=== PATIENT | female | born 1990 | race Caucasian/White ===

== ENCOUNTER 2016-03-16 16:25 | Emergency (ER) | payer OTHER ==
[2016-03-16] MEDS ORDERED: CEPHALEXIN 250 MG CAP As Ordered ONE (18:09)
[2016-03-16] MEDS ORDERED: LIDOCAINE 1% MDV 20ML VIAL As Ordered ONE (18:09)
[2016-03-16] MEDS ORDERED: ADACEL/BOOSTRIX VACCINE (DIPHTH/PERTUSS/ACELL/TETANUS)0.5ML SYR (90715) As Ordered ONE (18:10)
--- NOTE | 2016-03-16 18:33 | EDDOCDS ---
Physician Documentation [facility] Name: Maricruz Coleman Age: 25 yrs Sex: Female : 1990 Arrival Date: 03/16/2016 Time: 16:25 Bed TR8 Private MD: Disposition: 03/16/16 18:24 Discharged to Home/Self Care. Impression: Open wound of hand - LEFT, LACERATION. - Condition is Stable. - Discharge Instructions: Laceration Care, Adult. - Prescriptions for Keflex 500 mg Oral Capsule - take 1 capsule by ORAL route every 6 hours for 10 days; 40 capsule. - Medication Reconciliation, Local Pharmacy Hours form. - Follow up: Emergency Department; When: 1 week; Reason: Recheck today's complaints, Continuance of care. - Problem is new. - Symptoms have improved. Historical: - Allergies: no known allergies; - Home Meds: 1. Novolog Pump Sub-Q soln daily - PMHx: Diabetes - IDDM: controlled; Polycystic Ovary Disease; - PSHx: D & C; - Immunization history:: Last tetanus immunization: unknown. - Family history: Not pertinent. - Social history: Smoking status: Patient states was never smoker of tobacco. No barriers to communication noted, The patient speaks fluent Estonian, Speaks appropriately for age. - : The pt / caregiver states he / she is not on anticoagulants. Home medication list is obtained from the patient. - Exposure Risk Screening:: None identified. 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 7 in. (170.18 cm) (R); Pain 1/10; 18:30 BP 144 / 86; Pulse 114; Resp 16; Temp 99.4(TE); Pulse Ox 97% on R/A; Pain 0/10; mlb1 16:27 Body Mass Index 36.81 (106.59 kg, 170.18 cm) sar1 Procedures: 18:22 Laceration repair:. ck7 Laceration: 18:22 Wound Repair of 1cm ( 0.4in ) full thickness laceration to left hand. Linear shaped.. ck7 Distal neuro/vascular/tendon intact. Anesthesia: Topical anesthetic administered with 2 mls of 1% lidocaine. Wound prep: Extensive cleansing with betadine by provider, Wound irrigation by provider, Wound explored extensively. Skin closed with 2 x 4-0 Nylon using Simple interrupted sutures. Dressed with bandaid. Patient tolerated well. MDM: 17:59 Cephalexin 500 mg PO once ordered. ck7 17:59 Tetanus- Diptheria-Acellular Pertussis 0.5 ml IM once; Routine booster 10-64yrs, >64 ck7 with child contact [place] [employer] ordered. 17:59 Lidocaine 10 mg/mL (1 %) 10 ml Infiltration once; to bedside ordered. ck7 18:12 Financial registration complete. ks16 18:13 [facility] Payment Agreement was scanned into [employer] and attached to record. ks16 Administered Medications: 18:24 Drug: Tetanus- Diptheria-Acellular Pertussis 0.5 ml [diphth,pertussis(acel),tetanus 2.5 ms18 Lf unit-8 mcg-5 Lf/0.5mL IM syringe (0.5 mL)] {Metal Trades Instructor: [employer]. Exp: 05/01/2018. Lot #: [id number]. } Route: IM; Site: right deltoid; 18:24 Drug: Lidocaine 10 ml [lidocaine 10 mg/mL (1 %) injection solution (10 mL)] {Note: ms18 administered by Alley MEI.} Route: Infiltration; 18:25 Drug: Cephalexin 500 mg [cephalexin 250 mg capsule (2 caps)] {Note: pt unable to ms18 swallow pill, mixed in cranberry thickener.} Route: PO; Signatures: Curtis Luke, RN RN mlb1 Dario Aviles, RPA-C RPA-Cck7 Mckenzie Beal, Reg Reg lilli16 Kyung Brown RN ms18 The chart was reviewed and I authenticate all verbal orders and agree with the evaluation and treatment provided.Attachments: 18:13 [facility] Payment Agreement ks16 MTDD
--- NOTE | 2016-03-16 18:33 | EDDOCDS ---
Nurse's Notes 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 Adult Sepsis Screening: The patient does not have new or worsening altered mentation. Patient's respiratory rate is less than 22. Systolic blood pressure is greater than 100. Patient has a qSOFA score of 0- Negative Sepsis Screen. Suicide/Homicide risk assessment- Suicide/Homicide risk assessment- the patient denies having any suicidal and/or homicidal ideations and does not present with any other emotional, behavioral or mental health complaints. Status: Patient is not a general service officer or dependent. Transition of care: patient was not received from another setting of care. 16:31 Acuity: GIO Level 4 mlb1 16:31 Method Of Arrival: Walkin/Carried/Asstd mlb1 Triage Assessment: 16:34 General: Appears in no apparent distress, Behavior is appropriate for age, cooperative. mlb1 Pain: Location: Left first web space Pain currently is 1 out of 10 on a pain scale. Pt Declines HIV testing. Injury Description: Laceration sustained to Left first web space is 0.5 to 2.5 cm long, not bleeding, is bleeding a small amount. 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 Novolog Pump Sub-Q soln daily - PMHx: Diabetes - IDDM: controlled; Polycystic Ovary Disease; - PSHx: D & C; - Immunization history:: Last tetanus immunization: unknown. - Family history: Not pertinent. - Social history: Smoking status: Patient states was never smoker of tobacco. No barriers to communication noted, The patient speaks fluent Divehi, Speaks appropriately for age. - : The pt / caregiver states he / she is not on anticoagulants. Home medication list is obtained from the patient. - Exposure Risk Screening:: None identified. Screenin:31 Screening information is obtained from the patient. Fall risk: No risks identified. mlb1 Assistance ADL's: requires no assistance with activities of daily living. Abuse/DV Screen: The patient / caregiver reports he/she is: not in a situation that causes fear, pain or injury. Nutritional screening: No deficits noted. Advance Directives: Currently, there is no health care proxy. home support is adequate. Assessment: 18:29 General: Appears in no apparent distress, comfortable, Behavior is appropriate for age, mlb1 cooperative. Pain: Denies pain. Injury Description: Laceration sustained to Left first web space is clean, 0.5 to 2.5 cm long, not bleeding, is bleeding a small amount. Vital Signs: 16:27 BP 179 / 75; Pulse 110; Resp 18; Temp 98.5(O); Pulse Ox 96% on R/A; Weight 106.59 kg sar1 (R); Height 5 ft. 7 in. (170.18 cm) (R); Pain 1/10; 18:30 BP 144 / 86; Pulse 114; Resp 16; Temp 99.4(TE); Pulse Ox 97% on R/A; Pain 0/10; mlb1 16:27 Body Mass Index 36.81 (106.59 kg, 170.18 cm) [facility] Vitals: 16:27 Log In Time: March 16, 2016 at 16:27. [facility] ED Course: 16:26 Patient visited by Greer Rao, Process Camera Operator. sar1 16:26 Patient moved to Waiting sar1 16:28 Patient moved to Pre RCE sar1 16:31 Patient visited by Curtis Luke RN. mlb1 16:32 Triage Initiated mlb1 16:35 Patient visited by Curtis Luke RN. mlb1 17:01 Patient moved to Triage 1 ms18 17:53 [facility]C [facility] ck7 17:53 Carla Moon MD is Attending Physician. ck7 17:53 Patient visited by Dario Aviles RPA-C. ck7 18:08 Patient moved to PD2 / 27 mlb1 18:13 [facility] Payment Agreement was scanned into [employer] and attached to record. ks16 18:18 Patient name changed from Maricruz\S\\S\[place]\S\ to Maricruz\S\ \S\[place]. EDMS 18:24 Patient visited by Kyung Brown RN. ms18 18:31 No IV's were initiated during this patient's visit. No procedures done that require mlb1 assistance. 18:32 Patient moved to TR8 ms18 18:32 The patient / caregiver is instructed regarding the plan of care and ED course. mlb1 Administered Medications: 18:24 Drug: Tetanus- Diptheria-Acellular Pertussis 0.5 ml [diphth,pertussis(acel),tetanus 2.5 ms18 Lf unit-8 mcg-5 Lf/0.5mL IM syringe (0.5 mL)] {Trust Vault Custodian: [employer]. Exp: 05/01/2018. Lot #: [id number]. } Route: IM; Site: right deltoid; 18:24 Drug: Lidocaine 10 ml [lidocaine 10 mg/mL (1 %) injection solution (10 mL)] {Note: ms18 administered by Alley MEI.} Route: Infiltration; 18:25 Drug: Cephalexin 500 mg [cephalexin 250 mg capsule (2 caps)] {Note: pt unable to ms18 swallow pill, mixed in cranberry thickener.} Route: PO; Order Results: There are currently no results for this order. Outcome: 18:24 Discharge ordered by Provider. ck7 18:31 Discharge Assessment: Patient awake, alert and oriented x 3. No cognitive and/or mlb1 functional deficits noted. Patient verbalized understanding of disposition instructions. patient administered narcotics - no. The following High Risk Discharge criteria are identified: None. Discharged to home ambulatory. Condition: good. Discharge instructions given to patient, Instructed on discharge instructions, follow up and referral plans. Demonstrated understanding of instructions, medications, Pt was receptive of discharge instructions/ teaching. Prescriptions given X 1. No special radiology studies were completed. Property sent home with patient. 18:32 Patient left the ED. mlb1 Signatures: Dispatcher [employer] [facility] Curtis Luke RN RN Dario Harvey, RPA-C RPA-Cck7 Kyung Brown,KARLA RN ms18 Greer Rao, Process Camera Operator Unit sar1 Emigdio Mckenzie, Reg Reg ks16 MTDD
--- NOTE | 2016-03-18 19:33 | EDDOCDS ---
Physician Documentation [facility] Name: Maricruz Coleman Age: 25 yrs Sex: Female : 1990 Arrival Date: 03/16/2016 Time: 16:25 Bed TR8 Private MD: Disposition: 03/16/16 18:24 Discharged to Home/Self Care. Impression: Open wound of hand - LEFT, LACERATION. - Condition is Stable. - Discharge Instructions: Laceration Care, Adult. - Prescriptions for Keflex 500 mg Oral Capsule - take 1 capsule by ORAL route every 6 hours for 10 days; 40 capsule. - Medication Reconciliation, Local Pharmacy Hours form. - Follow up: Emergency Department; When: 1 week; Reason: Recheck today's complaints, Continuance of care. - Problem is new. - Symptoms have improved. Historical: - Allergies: no known allergies; - Home Meds: 1. Novolog Pump Sub-Q soln daily - PMHx: Diabetes - IDDM: controlled; Polycystic Ovary Disease; - PSHx: D & C; - Immunization history:: Last tetanus immunization: unknown. - Family history: Not pertinent. - Social history: Smoking status: Patient states was never smoker of tobacco. No barriers to communication noted, The patient speaks fluent Slovenian, Speaks appropriately for age. - : The pt / caregiver states he / she is not on anticoagulants. Home medication list is obtained from the patient. - Exposure Risk Screening:: None identified. 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 7 in. (170.18 cm) (R); Pain 1/10; 18:30 BP 144 / 86; Pulse 114; Resp 16; Temp 99.4(TE); Pulse Ox 97% on R/A; Pain 0/10; mlb1 16:27 Body Mass Index 36.81 (106.59 kg, 170.18 cm) sar1 Procedures: 18:22 Laceration repair:. ck7 Laceration: 18:22 Wound Repair of 1cm ( 0.4in ) full thickness laceration to left hand. Linear shaped.. ck7 Distal neuro/vascular/tendon intact. Anesthesia: Topical anesthetic administered with 2 mls of 1% lidocaine. Wound prep: Extensive cleansing with betadine by provider, Wound irrigation by provider, Wound explored extensively. Skin closed with 2 x 4-0 Nylon using Simple interrupted sutures. Dressed with bandaid. Patient tolerated well. MDM: 17:59 Cephalexin 500 mg PO once ordered. ck7 17:59 Tetanus- Diptheria-Acellular Pertussis 0.5 ml IM once; Routine booster 10-64yrs, >64 ck7 with child contact [place] [employer] ordered. 17:59 Lidocaine 10 mg/mL (1 %) 10 ml Infiltration once; to bedside ordered. ck7 18:12 Financial registration complete. [facility] 18:13 [facility] Payment Agreement was scanned into [employer] and attached to record. [facility] 03/17 05:38 T-Sheet-- Draft Copy was scanned into [employer] and attached to record. hs2 Administered Medications: 03/16 18:24 Drug: Tetanus- Diptheria-Acellular Pertussis 0.5 ml [diphth,pertussis(acel),tetanus 2.5 ms18 Lf unit-8 mcg-5 Lf/0.5mL IM syringe (0.5 mL)] {Floor Sweeper: [employer]. Exp: 05/01/2018. Lot #: [id number]. } Route: IM; Site: right deltoid; 18:24 Drug: Lidocaine 10 ml [lidocaine 10 mg/mL (1 %) injection solution (10 mL)] {Note: ms18 administered by Alley STALLINGS} Route: Infiltration; 18:25 Drug: Cephalexin 500 mg [cephalexin 250 mg capsule (2 caps)] {Note: pt unable to ms18 swallow pill, mixed in cranberry thickener.} Route: PO; Signatures: Curtis Luke RN RN mlb1 Dario Aviles RPA-C RPA-Cck7 Mckenzie Beal, Reg Reg ks16 Natalya Bess, Reg Reg hs2 Kyung Brown RN ms18 The chart was reviewed and I authenticate all verbal orders and agree with the evaluation and treatment provided.Attachments: 18:13 [facility] Payment Agreement [facility] 01/02 05:38 T-Sheet-- Draft Copy hs2 Chart Complete MTDD
--- NOTE | 2016-03-18 19:33 | EDDOCDS ---
[facility]: Maricruz Coleman Age: 25 yrs Sex: Female : 1990 Arrival Date: 03/16/2016 Time: 16:25 Bed TR8 Private MD: Disposition: 03/16/16 18:24 Discharged to Home/Self Care. Impression: Open wound of hand - LEFT, LACERATION. - Condition is Stable. - Discharge Instructions: Laceration Care, Adult. - Prescriptions for Keflex 500 mg Oral Capsule - take 1 capsule by ORAL route every 6 hours for 10 days; 40 capsule. - Medication Reconciliation, Local Pharmacy Hours form. - Follow up: Emergency Department; When: 1 week; Reason: Recheck today's complaints, Continuance of care. - Problem is new. - Symptoms have improved. Historical: - Allergies: no known allergies; - Home Meds: 1. Novolog Pump Sub-Q soln daily - PMHx: Diabetes - IDDM: controlled; Polycystic Ovary Disease; - PSHx: D & C; - Immunization history:: Last tetanus immunization: unknown. - Family history: Not pertinent. - Social history: Smoking status: Patient states was never smoker of tobacco. No barriers to communication noted, The patient speaks fluent Latvian, Speaks appropriately for age. - : The pt / caregiver states he / she is not on anticoagulants. Home medication list is obtained from the patient. - Exposure Risk Screening:: None identified. 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 7 in. (170.18 cm) (R); Pain 1/10; 18:30 BP 144 / 86; Pulse 114; Resp 16; Temp 99.4(TE); Pulse Ox 97% on R/A; Pain 0/10; mlb1 16:27 Body Mass Index 36.81 (106.59 kg, 170.18 cm) sar1 Procedures: 18:22 Laceration repair:. ck7 Laceration: 18:22 Wound Repair of 1cm ( 0.4in ) full thickness laceration to left hand. Linear shaped.. ck7 Distal neuro/vascular/tendon intact. Anesthesia: Topical anesthetic administered with 2 mls of 1% lidocaine. Wound prep: Extensive cleansing with betadine by provider, Wound irrigation by provider, Wound explored extensively. Skin closed with 2 x 4-0 Nylon using Simple interrupted sutures. Dressed with bandaid. Patient tolerated well. MDM: 17:59 Cephalexin 500 mg PO once ordered. ck7 17:59 Tetanus- Diptheria-Acellular Pertussis 0.5 ml IM once; Routine booster 10-64yrs, >64 ck7 with child contact [place] [employer] ordered. 17:59 Lidocaine 10 mg/mL (1 %) 10 ml Infiltration once; to bedside ordered. ck7 18:12 Financial registration complete. [facility] 18:13 [facility] Payment Agreement was scanned into [employer] and attached to record. [facility] 03/17 05:38 T-Sheet-- Draft Copy was scanned into [employer] and attached to record. hs2 Administered Medications: 03/16 18:24 Drug: Tetanus- Diptheria-Acellular Pertussis 0.5 ml [diphth,pertussis(acel),tetanus 2.5 ms18 Lf unit-8 mcg-5 Lf/0.5mL IM syringe (0.5 mL)] {Fine Arts Model: [employer]. Exp: 05/01/2018. Lot #: [id number]. } Route: IM; Site: right deltoid; 18:24 Drug: Lidocaine 10 ml [lidocaine 10 mg/mL (1 %) injection solution (10 mL)] {Note: ms18 administered by Alley STALLINGS} Route: Infiltration; 18:25 Drug: Cephalexin 500 mg [cephalexin 250 mg capsule (2 caps)] {Note: pt unable to ms18 swallow pill, mixed in cranberry thickener.} Route: PO; Signatures: Curtis Luke RN RN mlb1 Dario Aviles RPA-C RPA-Cck7 Mckenzie Beal, Reg Reg ks16 Natalya Bess, Reg Reg hs2 Kyung Brown RN ms18 The chart was reviewed and I authenticate all verbal orders and agree with the evaluation and treatment provided.Attachments: 18:13 [facility] Payment Agreement [facility] 01/02 05:38 T-Sheet-- Draft Copy hs2 Chart Complete MTDD
--- NOTE | 2016-03-18 19:33 | EDDOCDS ---
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 Adult Sepsis Screening: The patient does not have new or worsening altered mentation. Patient's respiratory rate is less than 22. Systolic blood pressure is greater than 100. Patient has a qSOFA score of 0- Negative Sepsis Screen. Suicide/Homicide risk assessment- Suicide/Homicide risk assessment- the patient denies having any suicidal and/or homicidal ideations and does not present with any other emotional, behavioral or mental health complaints. Status: Patient is not a multimedia services coordinator or dependent. Transition of care: patient was not received from another setting of care. 16:31 Acuity: GIO Level 4 mlb1 16:31 Method Of Arrival: Walkin/Carried/Asstd mlb1 Triage Assessment: 16:34 General: Appears in no apparent distress, Behavior is appropriate for age, cooperative. mlb1 Pain: Location: Left first web space Pain currently is 1 out of 10 on a pain scale. Pt Declines HIV testing. Injury Description: Laceration sustained to Left first web space is 0.5 to 2.5 cm long, not bleeding, is bleeding a small amount. 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 Novolog Pump Sub-Q soln daily - PMHx: Diabetes - IDDM: controlled; Polycystic Ovary Disease; - PSHx: D & C; - Immunization history:: Last tetanus immunization: unknown. - Family history: Not pertinent. - Social history: Smoking status: Patient states was never smoker of tobacco. No barriers to communication noted, The patient speaks fluent Greek, Speaks appropriately for age. - : The pt / caregiver states he / she is not on anticoagulants. Home medication list is obtained from the patient. - Exposure Risk Screening:: None identified. Screenin:31 Screening information is obtained from the patient. Fall risk: No risks identified. mlb1 Assistance ADL's: requires no assistance with activities of daily living. Abuse/DV Screen: The patient / caregiver reports he/she is: not in a situation that causes fear, pain or injury. Nutritional screening: No deficits noted. Advance Directives: Currently, there is no health care proxy. home support is adequate. Assessment: 18:29 General: Appears in no apparent distress, comfortable, Behavior is appropriate for age, mlb1 cooperative. Pain: Denies pain. Injury Description: Laceration sustained to Left first web space is clean, 0.5 to 2.5 cm long, not bleeding, is bleeding a small amount. Vital Signs: 16:27 BP 179 / 75; Pulse 110; Resp 18; Temp 98.5(O); Pulse Ox 96% on R/A; Weight 106.59 kg sar1 (R); Height 5 ft. 7 in. (170.18 cm) (R); Pain 1/10; 18:30 BP 144 / 86; Pulse 114; Resp 16; Temp 99.4(TE); Pulse Ox 97% on R/A; Pain 0/10; mlb1 16:27 Body Mass Index 36.81 (106.59 kg, 170.18 cm) [facility] Vitals: 16:27 Log In Time: March 16, 2016 at 16:27. [facility] ED Course: 16:26 Patient visited by Greer Rao, Inspector Watch Assembly. sar1 16:26 Patient moved to Waiting sar1 16:28 Patient moved to Pre RCE sar1 16:31 Patient visited by Curtis Luke RN. mlb1 16:32 Triage Initiated mlb1 16:35 Patient visited by Curtis Luke RN. mlb1 17:01 Patient moved to Triage 1 ms18 17:53 Dario Aviles RPA-C is [facility]. ck7 17:53 Carla Moon MD is Attending Physician. ck7 17:53 Patient visited by Dario Aviles RPA-C. ck7 18:08 Patient moved to PD2 / 27 mlb1 18:13 [facility] Payment Agreement was scanned into [employer] and attached to record. ks16 18:18 Patient name changed from Maricruz\S\\S\[place]\S\ to Maricruz\S\ \S\[place]. EDMS 18:24 Patient visited by Kyung Brown RN. ms18 18:31 No IV's were initiated during this patient's visit. No procedures done that require mlb1 assistance. 18:32 Patient moved to TR8 ms18 18:32 The patient / caregiver is instructed regarding the plan of care and ED course. [facility] 03/17 05:38 T-Sheet-- Draft Copy was scanned into [employer] and attached to record. hs2 Administered Medications: 03/16 18:24 Drug: Tetanus- Diptheria-Acellular Pertussis 0.5 ml [diphth,pertussis(acel),tetanus 2.5 ms18 Lf unit-8 mcg-5 Lf/0.5mL IM syringe (0.5 mL)] {Finger Waver: [employer]. Exp: 05/01/2018. Lot #: [id number]. } Route: IM; Site: right deltoid; 18:24 Drug: Lidocaine 10 ml [lidocaine 10 mg/mL (1 %) injection solution (10 mL)] {Note: ms18 administered by Alley MEI.} Route: Infiltration; 18:25 Drug: Cephalexin 500 mg [cephalexin 250 mg capsule (2 caps)] {Note: pt unable to ms18 swallow pill, mixed in cranberry thickener.} Route: PO; Order Results: There are currently no results for this order. Outcome: 18:24 Discharge ordered by Provider. ck7 18:31 Discharge Assessment: Patient awake, alert and oriented x 3. No cognitive and/or mlb1 functional deficits noted. Patient verbalized understanding of disposition instructions. patient administered narcotics - no. The following High Risk Discharge criteria are identified: None. Discharged to home ambulatory. Condition: good. Discharge instructions given to patient, Instructed on discharge instructions, follow up and referral plans. Demonstrated understanding of instructions, medications, Pt was receptive of discharge instructions/ teaching. Prescriptions given X 1. No special radiology studies were completed. Property sent home with patient. 18:32 Patient left the ED. mlb1 Signatures: Dispatcher [facility] Curtis Luke RN RN mlb1 Dario Aviles, RPA-C RPA-Cck7 Kyung Brown,KARLA RN ms18 Greer Rao, Inspector Watch Assembly Unit sar1 Mckenzie Beal, Reg Reg ks16 Natalya Bess, Reg Reg hs2 Chart Complete MTDD
== END 2016-03-16 18:32 | disposition home or self-care (01) ==
LOC: M ED 16:25
DX: S61.412A Laceration without foreign body of left hand, initial encounter (principal); W26.0XXA Contact with knife, initial encounter; Y92.019 Unspecified place in single-family (private) house as the place of occurrence of the external cause; Y93.9 Activity, unspecified; Y99.9 Unspecified external cause status; E10.9 Type 1 diabetes mellitus without complications; E28.2 Polycystic ovarian syndrome; Z79.4 Long term (current) use of insulin